=== PATIENT | male | born 2000 | race Caucasian/White ===

== ENCOUNTER 2018-11-12 07:07 | Emergency (ER) | payer OTHER ==
[~2018-11-12] VITALS: Ht 170.2 cm; Wt 70.5 kg
[2018-11-12] MEDS ORDERED: KETOROLAC 60 MG/2 ML VIAL (J1885) IM ONE (09:15)
[2018-11-12] MEDS ORDERED: NORCO, ANEXSIA 5/325MG TABLET (HYDROcodone/ACETAMINOPHEN) PO ONE (10:00)
[2018-11-12] MEDS ORDERED: LIDOCAINE 1% MDV INJ 50 ML VIAL SC ONE (12:00)
[2018-11-12] MEDS ORDERED: MORPHINE 4 MG/ML 1ML VIAL/SYRINGE (J2270) As Ordered ONE (12:22)
[2018-11-12] MEDS ORDERED: MORPHINE 4 MG/ML 1ML VIAL/SYRINGE (J2270) IV ONE (12:45)
--- NOTE | 2018-11-12 14:16 | REP ---
Clinical: Status post reduction. Technique: Axial noncontrast images of the wrist with coronal and sagittal re-formations. Findings: There appears to be satisfactory reduction to the previously noted carpal bone dislocation. The capitate and lunate are in the normal apposition to another and the joint spaces between the remainder of the carpal bones appear relatively normal. The ulnar styloid fracture is again identified and minuscule chip fractures of the carpal bones from uncertain donor sites are identified. Overlying soft tissue swelling noted. Impression: Satisfactory reduction is appreciated. Electronically Signed by Ebenezer Julien MD 11/12/2018 02:08 P
--- NOTE | 2018-11-12 14:20 | REP ---
RIGHT WRIST: Five views of the right wrist performed. Overlying splint obscures underlying osseous detail. Ulnar styloid fracture is again noted, minimally displaced. Other osseous structures are well aligned. Electronically Signed by Joseph Andre MD 11/12/2018 04:52 P
[2018-11-12 14:30] VITALS: BP 104/59
[2018-11-12] MEDS ORDERED: KETO10TAB PO (14:31)
[2018-11-12] MEDS ORDERED: PERC5TAB12 PO (14:31)
--- NOTE | 2018-11-12 15:25 | ER ---
DATE OF CONSULTATION: 11/12/2018 CHIEF COMPLAINT: Right hand pain. Patient states that he was in physical training (PT) today at [facility] doing a workout, when he had a trip and fall while doing full sprints and immediately appreciated severe right wrist pain, deformity and swelling. The patient is right-hand dominant. The patient states the pain is severe and is made worse with movement, alleviated with rest and pain medication. It is sharp in nature with a dull throbbing ache. Denies any other trauma or any pain elsewhere, fever, chills, nausea or vomiting. A complete 10-system review is conducted and pertinent positives negative except for what is in the history of present illness (HPI). All other systems is negative. PAST MEDICAL HISTORY: None. PAST SURGICAL HISTORY: None. ALLERGIES: No known drug allergies. MEDICATIONS: Patient does not take any medications. SOCIAL HISTORY: Patient is a non-smoker, non-drinker. PHYSICAL EXAMINATION: Patient is awake, alert, oriented, well-dressed, appropriate affect. Breathing is unlabored on room air. Left upper extremity: No tenderness to palpation or decreased active range of motion in the wrist, elbow and shoulder. Positive AIN TIN and ulnar motor nerve function. Radial pulses, tibial pulses are 2+ regular rate. Skin is intact. Sensation is intact to light touch and superficial sensory response to radial nerve, median nerve and ulnar nerve function. Right upper extremity: Tender to palpation with gross deformity and swelling about the right wrist. Tender to palpation grossly throughout the right wrist. Limited range of motion of the fingers and wrist due to pain. Sensation intact to light touch with superficial sensory response to radial nerve, median nerve and ulnar nerve. No tenderness to palpation about the elbow or shoulder. Radial pulses are 2+ regular rate. Fingers are warm and are well perfused. Positive AIN TIN and ulnar motor nerve function. Imaging reviewed demonstrating perilunate dislocation, ulnar styloid fracture. DIAGNOSIS: Right perilunate dislocation and ulnar styloid fracture. I discussed with the patient at great lengths that this is an unstable injury that will require definitive operative intervention. However, at the time, we need to reduce this closed injury. Fortunately, he did not appear to have acute carpal tunnel with this which sometimes may coincide. His sensation is intact. Therefore, in the emergency room (ER), we closed reduced his injury. He tolerated this well and this was confirmed by repeat imaging. He will followup in my clinic tomorrow morning at 8 a.m. and we will discuss definitive interventions. The patient is to be non-weightbearing, of the right upper extremity, to work on elevation to decrease swelling and help control pain. Pain pills will be given by the emergency room staff. PROCEDURE NOTE: DIAGNOSIS: Right perilunate dislocation. PROCEDURE: Reduction and splinting of the right perilunate dislocation. The patient was supine on the stretcher at which point, finger traps were placed and 5 pounds of traction was placed for approximately 5 minutes. Then some extended traction was given with downward force of myself on the looped Kerlix and we did a reduction move where we flexed the wrist completely down, captured the lunate and dorsiflexed it back overtop. This took two attempts and it was confirmed on mini C-arm. At which point, a splint was placed and a repeat films were then taken demonstrating reduction of the perilunate albeit in a DC deformity. No complications were noted and patient tolerated this procedure well.
--- NOTE | 2018-11-12 15:27 | REP ---
Clinical: Trauma. Technique: AP, lateral, bilateral oblique views right wrist . Findings: Minimally displaced ulnar styloid fracture with overlying soft tissue swelling noted. Distal radius, carpal bones, and visualized portions of the metacarpal bones appear normal. Impression: Ulnar styloid fracture. Electronically Signed by Ebenezer Julien MD 11/12/2018 08:36 A
[2018-11-12] MEDS ORDERED: OXYC1TAB23 PO (17:16)
== END 2018-11-12 14:53 | disposition home or self-care (01) ==
LOC: M ED 07:07
DX: S52.611A Displaced fracture of right ulna styloid process, initial encounter for closed fracture (principal); S63.094A Other dislocation of right wrist and hand, initial encounter; W01.0XXA Fall on same level from slipping, tripping and stumbling without subsequent striking against object, initial encounter; Y92.138 Other place on military base as the place of occurrence of the external cause; Y93.B9 Activity, other involving muscle strengthening exercises; Y99.1 Military activity
CPT/HCPCS: 25690; 73110; 73200; 96372; 96374; 99284; J1885; J2270

== ENCOUNTER 2018-11-18 10:45 | Day surgery (SDC) | payer OTHER ==
[~2018-11-18] VITALS: Ht 172.7 cm; Wt 71.1 kg
[~2018-11-18 10:45] MED LIST: KETO10TAB PO; LIDOCAINE 1% MDV 20ML VIAL SQ PRN; OXYC1TAB23 PO; PERC5TAB12 PO
[2018-11-18] MEDS ORDERED: PROPOFOL 200 MG/20 ML VIAL As Ordered ONE (12:49)
[2018-11-18] MEDS ORDERED: ONDANSETRON 4MG/2ML VIAL (J2405) As Ordered ONE (12:50)
[2018-11-18] MEDS ORDERED: dexameTHASONE 4 MG/ML 1ML VIAL (J1100) As Ordered ONE (12:50)
[2018-11-18] MEDS ORDERED: LIDOCAINE 2% INJ 100 MG/5 ML SDV (FOR ANES.) As Ordered ONE (12:50)
[2018-11-18] MEDS ORDERED: fentaNYL 100 MCG/2 ML INJECTION (J3010) As Ordered ONE (12:52)
[2018-11-18] MEDS ORDERED: MIDAZOLAM INJ 2 MG/2 ML VIAL (J2250) As Ordered ONE (12:55)
[2018-11-18] MEDS ORDERED: BUPIVACAINE/EPIN 0.25% 30 ML VIAL As Ordered ONE (13:15)
[2018-11-18] MEDS ORDERED: KETOROLAC 60 MG/2 ML VIAL (J1885) As Ordered ONE (14:35)
[2018-11-18] MEDS ORDERED: ONDANSETRON 4MG/2ML VIAL (J2405) IV PRN (15:30)
[2018-11-18] MEDS ORDERED: oxyCODONE 5MG TAB PO PRN ×2 (15:30)
[2018-11-18] MEDS ORDERED: MORPHINE 4 MG/ML 1ML VIAL/SYRINGE (J2270) IV PRN (15:30)
[2018-11-18] MEDS ORDERED: LR 1,000 ML IV SCH (15:30)
[2018-11-18] MEDS: fentaNYL 100 MCG/2 ML INJECTION (J3010) IV PRN ×4 (15:33→15:49)
[2018-11-18] MEDS: PERCOCET 5MG/325MG TAB PO PRN ×2 (15:36→16:08)
[2018-11-18 17:00] VITALS: BP 122/66
--- NOTE | 2018-11-18 17:23 | REP ---
Right wrist: Four views intraoperative. History: Intraoperative views. 125 seconds of fluoroscopy time is reported. Findings: A sequence of four last image hold fluoroscopically obtained spot radiographs of the right wrist demonstrate operative pinning and manipulation. A ulnar styloid chip fracture is visible. Electronically Signed by Rock Healy MD 11/18/2018 05:25 P
--- NOTE | 2018-11-19 14:10 | RO ---
DATE OF PROCEDURE: 11/18/2018 PREOPERATIVE DIAGNOSIS: Right perilunate dislocation along with ulnar styloid fracture. POSTOPERATIVE DIAGNOSIS: Right perilunate dislocation along with ulnar styloid fracture. PROCEDURE: 1. Right (PIN) posterior interosseous nerve neurectomy. 2. Open treatment perilunate dislocation. 3. Open treatment radial carpal dislocation. 4. Dorsal capsulodesis, right. 5. Closed management ulnar styloid fracture. SURGEON: Dr. Crow Bundy INTERACTIVE DEVELOPER: None. ANESTHESIA: General. TOURNIQUET TIME: Approximately 90 minutes. IMPLANTS: 2.4 Arthrex SutureTak anchors times two. Four 0.045 mm K-wires. ANTIBIOTICS: 2 grams of Ancef. ESTIMATED BLOOD LOSS: Minimal. COMPLICATIONS: None. INDICATIONS: This is a 18-year-old male who suffered a right perilunate dislocation that had to be closed and reduced in the emergency room (ER). This was by nature an unstable injury and we discussed with the patient operative intervention in order to provide him a stable wrist with lasting benefit. The patient expressed understanding and agreement with his plan. The risks and benefits discussed including, but not limited to infection, malunion, nonunion, need for further surgery, and recurrent pain. The patient expressed understanding and agreed to move forward. OPERATIVE FINDINGS: Gross instability of the radial carpal joint along with lunate reduction. The dorsal capsule was completely avulsed off of the scaphoid, lunate, and triquetrum. The majority of the dorsal aspect of the interosseous scapholunate ligament was attached to the lunate with a small piece attached to the scaphoid most distally. PROCEDURE DESCRIPTION: The patient was rolled back to the operating room (OR) and placed supine on the operating table, the hand table, and underwent general anesthesia. Once this was completed, we prepped and draped the right hand in the usual fashion, at which point, we had time out confirming the site, side, surgery and patient. Once all in agreement, we made a dorsal incision along the third metacarpal overlying the fourth compartment at the dorsum of the wrist. We sharply went through subcutaneous tissue, carefully identifying any small branches of the sensory branch of the radial nerve and preserving them, at which point, we identified the extensor pollicis longus (EPL) and liberated it from its compartment and then lifted off the fourth compartment from the distal radius, at which point, we identified the PIN and mobilized it and excised it proximally. Once the extensor compartments from the wrist capsule, we noticed that there was a complete avulsion across almost the entire dorsum of the wrist capsule from the radius and also once we leafed the capsule open we noticed that it was completely avulsed off of the carpal bones as well, at which point, we identified that the lunate was once again dislocated. We underwent a closed reduction in order to reduce the lunate back into the lunate fossa. Once we had adequate visualization of the carpal bones, we placed 1.6 K-wires into the lunate and scaphoid to act as wyatt sticks, at which point, we used the mini C-arm to confirm our reduction and our scapholunate angle, at which point, we placed a pin going from the scaphoid into the lunate. Once we were happy with this reduction, we further secured it with an additional pin from the scaphoid into lunate and then one from the lunate to the scaphoid exiting the ulnar aspect of the wrist. We then did a fourth pin going through the radial styloid to scaphoid and into the capitate. We confirmed reduction on x-ray, at which point, we identified the scapholunate ligament. This was mostly attached to the lunate, but also had a small area of attachment onto the scaphoid that was a separate piece. We decided to proceed with a primary repair. We used two 4 Arthrex SutureTak anchors that have 2-0 FiberWire loaded and inserted one at the base of the scaphoid and an additional one at the more distal aspect of the lunate. We then using horizontal mattress sutures secured down the remnants of the scapholunate ligament. We were quite happy with how this reduced. At this point, we reinforced it with the dorsal wrist capsule doing capsulorrhaphy of the dorsal wrist, capsulodesis. We confirmed on x-ray one more time and we were happy with our reduction, at which point, we bent and cut the pins, irrigated the wound thoroughly, closed the wrist capsule. Then secured the extensor retinaculum, both with #0 Vicryl and then we used #2-0 Vicryl for subcutaneous closure and #3-0 Monocryl for skin. At this point, the wound was dressed with Adaptic, gauze and placed into a volar splint. The tourniquet was let down at approximately 90 minutes. The patient was then taken stably to the postanesthesia care unit (PACU). Postoperative Plan: The patient will followup with a local orthopedic surgeon in [place] while he is home visiting his family, at which point, they will place him into a short arm cast. We will then have the patient followup with me upon his return to continue the cast and get x-ray confirming reduction and continue on from there. edited: 11/22/2018 0745 [email or web address] MARIBETH
== END 2018-11-18 17:15 | disposition home or self-care (01) ==
LOC: M SDC 10:45
PROVIDERS: ATTEND Orthopaedic Surgery Hand Surgery
DX: S63.03 Subluxation and dislocation of midcarpal joint (principal); S52.611A Displaced fracture of right ulna styloid process, initial encounter for closed fracture; W01.0XXA Fall on same level from slipping, tripping and stumbling without subsequent striking against object, initial encounter; Y92.138 Other place on military base as the place of occurrence of the external cause; Y93.B9 Activity, other involving muscle strengthening exercises; Y99.1 Military activity; Z91.81 History of falling
CPT/HCPCS: 25320; 25605; 25670; 64782; 76000; C1713; J1100; J1885; J2250; J2405; J3010

== ENCOUNTER → 2023-08-13 | Outpatient (CLI) | payer OTHER, BC ==
[~2023-08-13] MED LIST changes: -LIDOCAINE 1% MDV 20ML VIAL SQ PRN
[2023-08-14 17:07] LABS: G6PD2 5.54 x10E6/uL (4.14-5.80)
== END ==
LOC: M WUC 09:08
PROVIDERS: ATTEND Family Medicine
DX: Z02.1 Encounter for pre-employment examination (principal)